=== PATIENT | male | born 1990 | race Two or more races ===

== ENCOUNTER 2020-09-25 16:35 | Outpatient (REF) | payer BC, SELFPAY | END 2020-09-25 16:36 | disposition home or self-care (01) | LOC: HO.HOSX 16:35 | PROVIDERS: Visit Provider Orthopaedic Surgery | DX: Z13.89 Encounter for screening for other disorder (principal) ==

== ENCOUNTER → 2020-09-26 08:31 | Outpatient (BNVA) | payer BC, SELFPAY | PROVIDERS: Visit Provider Orthopaedic Surgery | DX: S62.001A Unspecified fracture of navicular [scaphoid] bone of right wrist, initial encounter for closed fracture (principal); F12.90 Cannabis use, unspecified, uncomplicated | CPT/HCPCS: 25622 ==

== ENCOUNTER 2020-10-23 10:28 | Outpatient (REF) | payer BC, SELFPAY ==
--- NOTE | ~2020-10-23 | XR_ITS ---
EXAMINATION: XR WRIST, RIGHT CLINICAL INFORMATION: M25.531 - Pain in right wrist COMPARISON: None TECHNIQUE: Right wrist is imaged in 4 views including navicular view. FINDINGS: There is an intra-articular longitudinal fracture involving the lateral aspect distal navicular pole. No angulation or displacement. No dislocation or destructive process. There is borderline negative ulnar variance. No chondrocalcinosis. Remainder of bony structures are unremarkable. XR/XR wrist RT w scaphoid IMPRESSION: Intra-articular fracture lateral aspect distal navicular pole.
== END 2020-10-23 10:29 | disposition home or self-care (01) ==
LOC: HO.HOSX 10:28
PROVIDERS: Visit Provider Orthopaedic Surgery
DX: S62.001A Unspecified fracture of navicular [scaphoid] bone of right wrist, initial encounter for closed fracture (principal)
CPT/HCPCS: 73110

== ENCOUNTER → 2020-11-13 08:23 | Outpatient (BNVA) | payer BC, SELFPAY | PROVIDERS: Visit Provider Orthopaedic Surgery ==

== ENCOUNTER → 2020-12-01 12:32 | Outpatient (BNVA) | payer BC, SELFPAY | PROVIDERS: Visit Provider Physician Assistant | DX: S62.001A Unspecified fracture of navicular [scaphoid] bone of right wrist, initial encounter for closed fracture (principal) | CPT/HCPCS: 29075 ==

== ENCOUNTER 2020-12-06 12:35 | Outpatient (REF) | payer BC, SELFPAY ==
--- NOTE | ~2020-12-06 | XR_ITS ---
EXAMINATION: XR WRIST, RIGHT CLINICAL INFORMATION: Pain in right wrist. Scaphoid fracture. COMPARISON: None TECHNIQUE: PA, lateral, and oblique views of the right wrist. FINDINGS: The fracture of the distal pole of the scaphoid is still visualized in essentially anatomic alignment. No definite healing response is demonstrated. No other abnormality. XR/XR wrist RT min 3V IMPRESSION: Fracture distal pole right scaphoid in stable essentially anatomic alignment.
== END 2020-12-06 12:36 | disposition home or self-care (01) ==
LOC: HO.XRAY 12:35
PROVIDERS: Visit Provider Orthopaedic Surgery
DX: M25.531 Pain in right wrist (principal)
CPT/HCPCS: 73110

== ENCOUNTER 2021-01-03 08:20 | Outpatient (REF) | payer BC, SELFPAY ==
--- NOTE | ~2021-01-03 | XR_ITS ---
EXAMINATION: XR WRIST, RIGHT CLINICAL INFORMATION: Pain. COMPARISON: Right wrist radiographs dated 12/06/2020. TECHNIQUE: AP, oblique, lateral, and scaphoid views of the right wrist. FINDINGS: Nondisplaced fracture through the distal/radial aspect of the scaphoid in unchanged anatomic alignment. Mild new bone/callus formation. No additional fracture. No dislocation. No joint space narrowing or marginal osteophytes. No osseous erosion. XR/XR wrist RT w scaphoid IMPRESSION: Distal scaphoid fracture in unchanged anatomic alignment with mild new bone/callus formation.
== END 2021-01-03 08:21 | disposition home or self-care (01) ==
LOC: HO.HOSX 08:20
PROVIDERS: Visit Provider Orthopaedic Surgery
DX: S62.001A Unspecified fracture of navicular [scaphoid] bone of right wrist, initial encounter for closed fracture (principal); M65.4 Radial styloid tenosynovitis [de Quervain]
CPT/HCPCS: 73110

== ENCOUNTER 2023-08-10 19:43 | Emergency (ER) | payer OTHER, BC, SELFPAY ==
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
[2023-08-10 19:55] VITALS: BP 137/92; PULSE 86; RESP 14; TEMP 37.2; O2SAT 96; BMI 31.1
--- NOTE | 2023-08-10 20:04 | ECG_ITS ---
Test Reason : CHEST PAIN Blood Pressure : / mmHG Vent. Rate : 067 BPM Atrial Rate : 067 BPM P-R Int : 132 ms QRS Dur : 088 ms QT Int : 364 ms P-R-T Axes : -05 059 031 degrees QTc Int : 384 ms Normal sinus rhythm with sinus arrhythmia Normal ECG No previous ECGs available Referred By: Generic ED Physician Electronically Signed By:THERESA WILKINS MD
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
== END 2023-08-10 21:50 | disposition home or self-care (01) ==
PROVIDERS: Emergency Provider Emergency Medicine
DX: S90.32XA Contusion of left foot, initial encounter (principal); M54.50 Low back pain, unspecified; R07.89 Other chest pain; I49.9 Cardiac arrhythmia, unspecified; M79.10 Myalgia, unspecified site; L30.9 Dermatitis, unspecified; V43.52XA Car driver injured in collision with other type car in traffic accident, initial encounter; Y93.9 Activity, unspecified; Y92.410 Unspecified street and highway as the place of occurrence of the external cause; Y99.8 Other external cause status
CPT/HCPCS: 73590; 73610; 73630; 93005; 99283; 99284

== ENCOUNTER → 2023-08-10 20:04 | Outpatient (BNV) | payer SELFPAY | PROVIDERS: Emergency Provider Emergency Medicine; Visit Provider Internal Medicine Cardiovascular Disease | DX: R07.9 Chest pain, unspecified (principal) | CPT/HCPCS: 93010 ==